=== PATIENT | female | born 1955 | race Caucasian/White ===

== ENCOUNTER 2017-09-24 07:20 | Emergency (ER) | payer OTHER ==
[2017-09-24] MEDS: SOD CHLORIDE 0.9% 1,000 ML IV (07:34)
[2017-09-24 08:25] LABS: ADD MAN DIFF? NO
[2017-09-24 08:30] LABS: WHITE BLOOD COUNT 8.5 10^3/ul (4.8-10.8)
[2017-09-24 08:30] LABS: BASOPHILS % 0.2 % (0.0-2.0); EOSINOPHILS % 0.4 % (0.0-7.0); HEMATOCRIT 44.1 % (37.0-47.0); HEMOGLOBIN 13.9 g/dl (12.0-16.0); LYMPHOCYTES # 1.6 10^3/ul (0.8-2.9); LYMPHOCYTES % 18.4 % (15.0-51.0); MEAN CORPUSCULAR HEMOGLOBIN 29.3 pg (29.0-33.0); MEAN CORPUSCULAR HGB CONC 31.5 g/dl (32.0-37.0); MEAN CORPUSCULAR VOLUME 92.8 fl (82.0-101.0); MEAN PLATELET VOLUME 9.8 fl (7.4-10.4); MONOCYTE # 0.3 10^3/ul (0.3-0.9); MONOCYTES % 3.4 % (0.0-11.0); NEUTROPHIL # 6.5 10^3/ul (1.6-7.5); NEUTROPHILS % 77.4 % (39.0-77.0); PLATELET COUNT 271 10^3/UL (140-415); RED BLOOD COUNT 4.75 10^6/ul (4.20-5.40); RED CELL DISTRIBUTION WIDTH 13.8 % (11.5-14.5)
[2017-09-24 08:47] LABS: ALANINE AMINOTRANSFERASE 28 IU/L (13-69); ALBUMIN/GLOBULIN RATIO 1.17; ALKALINE PHOSPHATASE 83 IU/L (42-121); ANION GAP 14 (8-16); ASPARTATE AMINO TRANSFERASE 21 IU/L (15-46); BILIRUBIN,INDIRECT 0.2 mg/dl (0-1.1); BILIRUBIN,TOTAL 0.2 mg/dl (0.2-1.3); BLOOD UREA NITROGEN 15 mg/dl (7-20); CALCIUM 9.1 mg/dl (8.4-10.2); CARBON DIOXIDE 27 mmol/L (21-31); CHLORIDE 105 mmol/L (97-110); CREATININE 0.64 mg/dl (0.44-1.00); GLUCOSE 138 mg/dl (70-220); POTASSIUM 4.1 mmol/L (3.5-5.1); SODIUM 142 mmol/L (135-144); TOTAL PROTEIN 7.4 g/dl (6.1-8.1)
[2017-09-24 08:48] LABS: INR 0.98; PROTIME 13.1 Sec (11.9-14.9)
[2017-09-24 08:49] LABS: ETHANOL < 10.0 mg/dl; PARTIAL THROMBOPLASTIN TIME 29.2 Sec (25.0-35.0)
[2017-09-24 09:14] LABS: TROPONIN-I < 0.012 ng/ml (0.00-0.12)
== END 2017-09-24 11:05 | disposition home or self-care (01) ==
LOC: E/R 07:20
DX: E11.65 Type 2 diabetes mellitus with hyperglycemia (principal); R53.1 Weakness; R55 Syncope and collapse; Z79.4 Long term (current) use of insulin
CPT/HCPCS: 36415; 70450; 71045; 80053; 80306; 82962; 84484; 85025; 85610; 85730; 93005; 96360; 99285-25

== ENCOUNTER 2017-10-21 22:14 | Emergency (ER) | payer OTHER ==
[2017-10-22] MEDS: ACETAMINOPHEN 325 MG TAB PO (01:12)
[2017-10-22 02:22] LABS: ADD MAN DIFF? NO
[2017-10-22 02:23] LABS: BASOPHILS % 0.4 % (0.0-2.0); EOSINOPHILS # 0.1 10^3/ul (0.0-0.5); EOSINOPHILS % 1.1 % (0.0-7.0); HEMATOCRIT 42.2 % (37.0-47.0); HEMOGLOBIN 13.4 g/dl (12.0-16.0); LYMPHOCYTES # 0.8 10^3/ul (0.8-2.9); LYMPHOCYTES % 8.9 % (15.0-51.0); MEAN CORPUSCULAR HEMOGLOBIN 29.1 pg (29.0-33.0); MEAN CORPUSCULAR HGB CONC 31.8 g/dl (32.0-37.0); MEAN CORPUSCULAR VOLUME 91.7 fl (82.0-101.0); MEAN PLATELET VOLUME 10.6 fl (7.4-10.4); MONOCYTE # 1.1 10^3/ul (0.3-0.9); MONOCYTES % 11.6 % (0.0-11.0); NEUTROPHIL # 7.2 10^3/ul (1.6-7.5); NEUTROPHILS % 77.9 % (39.0-77.0); PLATELET COUNT 272 10^3/UL (140-415); RED CELL DISTRIBUTION WIDTH 14.4 % (11.5-14.5)
[2017-10-22 02:23] LABS: WHITE BLOOD COUNT 9.2 10^3/ul (4.8-10.8)
[2017-10-22 03:03] LABS: ANION GAP 18 (8-16); BLOOD UREA NITROGEN 15 mg/dl (7-20); CALCIUM 9.9 mg/dl (8.4-10.2); CARBON DIOXIDE 28 mmol/L (21-31); CHLORIDE 104 mmol/L (97-110); CREATININE 0.68 mg/dl (0.44-1.00); GLUCOSE 112 mg/dl (70-220); POTASSIUM 4.2 mmol/L (3.5-5.1); SODIUM 146 mmol/L (135-144)
[2017-10-22 03:12] LABS: TROPONIN-I 0.016 ng/ml (0.00-0.12)
== END 2017-10-22 03:41 | disposition home or self-care (01) ==
LOC: FTE 22:14
DX: J06.9 Acute upper respiratory infection, unspecified (principal); I10 Essential (primary) hypertension; E11.9 Type 2 diabetes mellitus without complications
CPT/HCPCS: 36415; 71045; 80048; 84484; 85025; 87400; 93005; 99285-25